=== PATIENT | female | born 2000 | race Two or more races ===

== ENCOUNTER 2019-11-06 00:01 | Emergency (ER) | payer OTHER ==
[~2019-11-06] VITALS: Ht 152.4 cm; Wt 63.6 kg
[2019-11-06] MEDS ORDERED: HYDR50CA9 PO (00:40)
[2019-11-06 00:43] VITALS: BP 115/70
[2019-11-06] MEDS ORDERED: LORazepam 2 MG TABLET PO ONE (01:15)
[2019-11-06] MEDS ORDERED: HydrOXYzine PAMOATE 50 MG CAPSULE PO ONE (01:15)
[2019-11-06] MEDS ORDERED: HydrOXYzine HCL 50 MG TABLET PO ONE (01:15)
== END 2019-11-06 01:24 | disposition home or self-care (01) ==
LOC: EMS 00:01
DX: F41.9 Anxiety disorder, unspecified (principal); F17.290 Nicotine dependence, other tobacco product, uncomplicated; F12.90 Cannabis use, unspecified, uncomplicated